=== PATIENT | male | born 1960 | race Caucasian/White ===

== ENCOUNTER 2021-09-11 11:45 | Inpatient (IN) ==
[2021-09-11] MEDS ORDERED: Piperacillin/Tazobactam 3.375 GM in 0.9 % Sodium Chloride Mini Bag 100 ML IVPB ONE (13:30)
[2021-09-11] MEDS ORDERED: Vancomycin 1,500 MG/265 ML IV.SOLN IVPB ONE (14:00)
[2021-09-11 14:13] LABS: Hematocrit 39.8 % (37.5-50.1); Hemoglobin 12.7 g/dL (12.9-16.9); Mean Corpuscular HGB Conc 31.9 g/dL (31.6-35.5); Mean Corpuscular Hemoglobin 29.2 pg (28.0-33.3); Mean Corpuscular Volume 91.5 fL (83.0-100.0); Mean Platelet Volume 10.1 fL (9.4-12.4); Platelet Count 296 K/mcL (140-400); Red Blood Count 4.35 M/mcL (4.19-5.50); Red Cell Distribution Width 13.4 % (11.5-14.5); White Blood Count 9.1 K/mcL (4.3-11.1)
[2021-09-11 14:38] LABS: BUN/Creatinine Ratio 25 (6-26); Blood Urea Nitrogen 28 mg/dL (8-23); Calcium 9.2 mg/dL (8.6-10.3); Carbon Dioxide 29 mEq/L (23-29); Chloride 106 mEq/L (98-107); Glucose 110 mg/dL (70-105); Osmolality,Calculated 290 (280-300); Potassium 3.7 mEq/L (3.5-5.1); Sodium 137 mEq/L (136-145); eGFR For African Americans > 60 (> 60); eGFR For Non-African Americans > 60 (> 60)
[2021-09-11] MEDS ORDERED: Ondansetron 4 MG/2 ML VIAL IVP PRN (15:35)
[2021-09-11] MEDS ORDERED: Melatonin 3 MG TABLET PO PRN (15:35)
[2021-09-11] MEDS ORDERED: Naloxone 0.4 MG/ML INJ IVP PRN (15:35)
[2021-09-11] MEDS: 0.9 % Sodium Chloride 1,000 ML IVC SCH (17:54)
[2021-09-11] MEDS: Nicotine 21 MG PATCH.TD24 TD SCH (17:57)
[2021-09-11] MEDS: Cefepime HCl 2,000 MG in 0.9 % Sodium Chloride Mini Bag 100 ML IVPB SCH (19:40)
[2021-09-12] MEDS ORDERED: Vancomycin 1,500 MG/265 ML IV.SOLN IVPB SCH ×2 (03:00→15:00)
[2021-09-12 03:34] LABS: Basophils % 0.3 %; Eosinophils # 0.2 K/mcL (0.0-0.6); Eosinophils % 1.9 %; Hematocrit 34.2 % (37.5-50.1); Immature Granulocytes % 0.4 % (0-4); Lymphocytes # 1.8 K/mcL (0.6-4.6); Lymphocytes % 23.4 %; Mean Corpuscular HGB Conc 32.5 g/dL (31.6-35.5); Mean Corpuscular Hemoglobin 29.8 pg (28.0-33.3); Mean Corpuscular Volume 91.7 fL (83.0-100.0); Mean Platelet Volume 10.1 fL (9.4-12.4); Monocytes # 0.7 K/mcL (0.0-1.3); Monocytes % 8.3 %; Neutrophils # 5.2 K/mcL (1.6-8.9); Platelet Count 270 K/mcL (140-400); Red Blood Count 3.73 M/mcL (4.19-5.50); Red Cell Distribution Width 13.4 % (11.5-14.5); Segmented Neutrophils % 65.7 %; White Blood Count 7.9 K/mcL (4.3-11.1)
[2021-09-12 03:49] LABS: Hemoglobin 11.1 g/dL (12.9-16.9)
[2021-09-12 04:04] LABS: BUN/Creatinine Ratio 22 (6-26); Blood Urea Nitrogen 25 mg/dL (8-23); Calcium 8.5 mg/dL (8.6-10.3); Carbon Dioxide 27 mEq/L (23-29); Chloride 110 mEq/L (98-107); Chol/HDL Ratio 5.7 (0-4.9); Cholesterol 149 mg/dL (< 200); Glucose 108 mg/dL (70-105); HDL Cholesterol 26 mg/dL (40-59); LDL Cholesterol,Calculated 104 mg/dL (< 100); Magnesium 2.1 mg/dL (1.6-2.6); Osmolality,Calculated 293 (280-300); Potassium 3.8 mEq/L (3.5-5.1); Sodium 139 mEq/L (136-145); Triglycerides 96 mg/dL (< 150); eGFR For African Americans > 60 (> 60); eGFR For Non-African Americans > 60 (> 60)
[2021-09-12] MEDS: 0.9 % Sodium Chloride 1,000 ML IVC SCH (09:26)
[2021-09-12] MEDS: Nicotine 21 MG PATCH.TD24 TD SCH (09:28)
[2021-09-12] MEDS: Cefepime HCl 2,000 MG in 0.9 % Sodium Chloride Mini Bag 100 ML IVPB SCH ×2 (09:28→20:38)
[2021-09-12] MEDS: *HR* Rivaroxaban 10 MG TABLET PO SCH (16:38)
[2021-09-12] MEDS: traZODone 50 MG TABLET PO SCH (20:40)
[2021-09-13 02:34] LABS: BUN/Creatinine Ratio 26 (6-26); Blood Urea Nitrogen 32 mg/dL (8-23); Calcium 8.4 mg/dL (8.6-10.3); Carbon Dioxide 25 mEq/L (23-29); Chloride 114 mEq/L (98-107); Glucose 136 mg/dL (70-105); Osmolality,Calculated 295 (280-300); Potassium 4.4 mEq/L (3.5-5.1); Sodium 138 mEq/L (136-145); eGFR For African Americans > 60 (> 60); eGFR For Non-African Americans 59 (> 60)
[2021-09-13 02:36] LABS: Basophils % 0.5 %; Eosinophils # 0.2 K/mcL (0.0-0.6); Eosinophils % 2.5 %; Hematocrit 35.9 % (37.5-50.1); Hemoglobin 11.3 g/dL (12.9-16.9); Immature Granulocytes % 0.5 % (0-4); Lymphocytes % 31.3 %; Mean Corpuscular HGB Conc 31.5 g/dL (31.6-35.5); Mean Corpuscular Hemoglobin 29.2 pg (28.0-33.3); Mean Corpuscular Volume 92.8 fL (83.0-100.0); Mean Platelet Volume 10.4 fL (9.4-12.4); Monocytes # 0.5 K/mcL (0.0-1.3); Monocytes % 7.3 %; Neutrophils # 3.8 K/mcL (1.6-8.9); Platelet Count 247 K/mcL (140-400); Red Blood Count 3.87 M/mcL (4.19-5.50); Red Cell Distribution Width 13.2 % (11.5-14.5); Segmented Neutrophils % 57.9 %; White Blood Count 6.5 K/mcL (4.3-11.1)
[2021-09-13] MEDS: Vancomycin 1,250 MG/262.5 ML IV.SOLN IVPB SCH ×2 (04:18→14:19)
[2021-09-13] MEDS: Nicotine 21 MG PATCH.TD24 TD SCH ×2 (08:39→08:46)
[2021-09-13] MEDS: TERBINAFINE HCL 250 MG PO SCH (08:40)
[2021-09-13] MEDS: Cefepime HCl 2,000 MG in 0.9 % Sodium Chloride Mini Bag 100 ML IVPB SCH ×2 (08:40→19:37)
[2021-09-13] MEDS: traZODone 50 MG TABLET PO SCH (19:39)
[2021-09-14 01:25] LABS: Basophils % 0.4 %; Eosinophils # 0.2 K/mcL (0.0-0.6); Eosinophils % 2.5 %; Hematocrit 37.9 % (37.5-50.1); Hemoglobin 12.2 g/dL (12.9-16.9); Immature Granulocytes % 0.3 % (0-4); Lymphocytes # 1.9 K/mcL (0.6-4.6); Lymphocytes % 24.6 %; Mean Corpuscular HGB Conc 32.2 g/dL (31.6-35.5); Mean Corpuscular Hemoglobin 29.8 pg (28.0-33.3); Mean Corpuscular Volume 92.4 fL (83.0-100.0); Mean Platelet Volume 10.3 fL (9.4-12.4); Monocytes # 0.5 K/mcL (0.0-1.3); Monocytes % 6.1 %; Neutrophils # 5.1 K/mcL (1.6-8.9); Platelet Count 284 K/mcL (140-400); Red Cell Distribution Width 13.1 % (11.5-14.5); Segmented Neutrophils % 66.1 %; White Blood Count 7.7 K/mcL (4.3-11.1)
[2021-09-14 01:42] LABS: BUN/Creatinine Ratio 24 (6-26); Blood Urea Nitrogen 27 mg/dL (8-23); Calcium 8.9 mg/dL (8.6-10.3); Carbon Dioxide 24 mEq/L (23-29); Chloride 111 mEq/L (98-107); Glucose 102 mg/dL (70-105); Osmolality,Calculated 295 (280-300); Potassium 4.2 mEq/L (3.5-5.1); Sodium 140 mEq/L (136-145); eGFR For African Americans > 60 (> 60); eGFR For Non-African Americans > 60 (> 60)
[2021-09-14] MEDS: Vancomycin 1,250 MG/262.5 ML IV.SOLN IVPB SCH ×2 (02:39→15:43)
[2021-09-14] MEDS: Cefepime HCl 2,000 MG in 0.9 % Sodium Chloride Mini Bag 100 ML IVPB SCH ×2 (08:25→19:26)
[2021-09-14] MEDS: Nicotine 21 MG PATCH.TD24 TD SCH (08:26)
[2021-09-14] MEDS: TERBINAFINE HCL 250 MG PO SCH (08:27)
[2021-09-14] MEDS: traZODone 50 MG TABLET PO SCH (19:30)
[2021-09-15 02:19] LABS: Basophils % 0.4 %; Eosinophils # 0.2 K/mcL (0.0-0.6); Eosinophils % 2.5 %; Hematocrit 36.7 % (37.5-50.1); Hemoglobin 11.8 g/dL (12.9-16.9); Immature Granulocytes % 0.4 % (0-4); Lymphocytes # 1.9 K/mcL (0.6-4.6); Lymphocytes % 26.7 %; Mean Corpuscular HGB Conc 32.2 g/dL (31.6-35.5); Mean Corpuscular Hemoglobin 29.4 pg (28.0-33.3); Mean Corpuscular Volume 91.3 fL (83.0-100.0); Mean Platelet Volume 10.5 fL (9.4-12.4); Monocytes # 0.5 K/mcL (0.0-1.3); Monocytes % 7.5 %; Neutrophils # 4.5 K/mcL (1.6-8.9); Platelet Count 278 K/mcL (140-400); Red Blood Count 4.02 M/mcL (4.19-5.50); Red Cell Distribution Width 13.1 % (11.5-14.5); Segmented Neutrophils % 62.5 %; White Blood Count 7.2 K/mcL (4.3-11.1)
[2021-09-15 02:27] LABS: BUN/Creatinine Ratio 25 (6-26); Blood Urea Nitrogen 29 mg/dL (8-23); Calcium 8.8 mg/dL (8.6-10.3); Carbon Dioxide 23 mEq/L (23-29); Chloride 112 mEq/L (98-107); Glucose 113 mg/dL (70-105); Osmolality,Calculated 293 (280-300); Potassium 4.3 mEq/L (3.5-5.1); Sodium 138 mEq/L (136-145); eGFR For African Americans > 60 (> 60); eGFR For Non-African Americans > 60 (> 60)
[2021-09-15] MEDS: Vancomycin 1,250 MG/262.5 ML IV.SOLN IVPB SCH ×2 (02:47→15:51)
[2021-09-15] MEDS: Nicotine 21 MG PATCH.TD24 TD SCH (08:33)
[2021-09-15] MEDS: Cefepime HCl 2,000 MG in 0.9 % Sodium Chloride Mini Bag 100 ML IVPB SCH ×2 (08:34→19:40)
[2021-09-15] MEDS: TERBINAFINE HCL 250 MG PO SCH (08:39)
[2021-09-15] MEDS: traZODone 50 MG TABLET PO SCH (19:40)
[2021-09-16 01:05] LABS: Basophils % 0.5 %; Eosinophils # 0.2 K/mcL (0.0-0.6); Eosinophils % 2.5 %; Hematocrit 35.3 % (37.5-50.1); Hemoglobin 11.5 g/dL (12.9-16.9); Immature Granulocytes % 0.4 % (0-4); Lymphocytes # 1.9 K/mcL (0.6-4.6); Lymphocytes % 23.8 %; Mean Corpuscular HGB Conc 32.6 g/dL (31.6-35.5); Mean Corpuscular Hemoglobin 29.2 pg (28.0-33.3); Mean Corpuscular Volume 89.6 fL (83.0-100.0); Monocytes # 0.5 K/mcL (0.0-1.3); Monocytes % 6.6 %; Neutrophils # 5.3 K/mcL (1.6-8.9); Platelet Count 258 K/mcL (140-400); Red Blood Count 3.94 M/mcL (4.19-5.50); Red Cell Distribution Width 13.2 % (11.5-14.5); Segmented Neutrophils % 66.2 %; White Blood Count 7.9 K/mcL (4.3-11.1)
[2021-09-16 01:23] LABS: BUN/Creatinine Ratio 29 (6-26); Blood Urea Nitrogen 34 mg/dL (8-23); Calcium 8.7 mg/dL (8.6-10.3); Carbon Dioxide 24 mEq/L (23-29); Chloride 110 mEq/L (98-107); Glucose 106 mg/dL (70-105); Osmolality,Calculated 296 (280-300); Potassium 4.2 mEq/L (3.5-5.1); Sodium 139 mEq/L (136-145); eGFR For African Americans > 60 (> 60); eGFR For Non-African Americans > 60 (> 60)
[2021-09-16] MEDS: Vancomycin 1,250 MG/262.5 ML IV.SOLN IVPB SCH ×2 (02:50→17:23)
[2021-09-16] MEDS: Cefepime HCl 2,000 MG in 0.9 % Sodium Chloride Mini Bag 100 ML IVPB SCH ×2 (08:33→20:17)
[2021-09-16] MEDS: TERBINAFINE HCL 250 MG PO SCH (08:33)
[2021-09-16] MEDS: Nicotine 21 MG PATCH.TD24 TD SCH (08:33)
[2021-09-16] MEDS ORDERED: *HR* FentaNYL (PF) 100 MCG/2 ML VIAL ONE ×3 (13:16→16:20)
[2021-09-16] MEDS ORDERED: *HR* Midazolam HCl 2 MG/2 ML VIAL ONE ×3 (13:16→15:31)
[2021-09-16] MEDS ORDERED: *HR* Heparin 10,000 UNIT/10 ML VIAL ONE (13:16)
[2021-09-16] MEDS ORDERED: Heparin 1,000 UNITS/500 mL 500 ML ONE ×2 (13:17→15:07)
[2021-09-16] MEDS ORDERED: 0.9 % Sodium Chloride 2,000 ML ONE (13:17)
[2021-09-16] MEDS ORDERED: Acetaminophen 325 MG TABLET PO PRN (15:40)
[2021-09-16] MEDS: *HR* HYDROcodone/Acet 5/325 mg TABLET PO PRN ×2 (17:25→23:51)
[2021-09-16] MEDS: traZODone 50 MG TABLET PO SCH (20:17)
[2021-09-17] MEDS: Cefepime HCl 2,000 MG in 0.9 % Sodium Chloride Mini Bag 100 ML IVPB SCH ×2 (07:46→20:25)
[2021-09-17] MEDS: Nicotine 21 MG PATCH.TD24 TD SCH (07:48)
[2021-09-17] MEDS: *HR* Rivaroxaban 10 MG TABLET PO SCH ×2 (17:35→20:27)
[2021-09-17] MEDS: traZODone 50 MG TABLET PO SCH (20:28)
[2021-09-18] MEDS: *HR* Rivaroxaban 10 MG TABLET PO SCH ×2 (02:19→16:44)
[2021-09-18 02:33] LABS: Basophils # 0.1 K/mcL (0.0-0.2); Basophils % 0.6 %; Eosinophils # 0.2 K/mcL (0.0-0.6); Eosinophils % 2.1 %; Hematocrit 34.6 % (37.5-50.1); Hemoglobin 11.4 g/dL (12.9-16.9); Immature Granulocytes % 0.2 % (0-4); Lymphocytes # 1.9 K/mcL (0.6-4.6); Lymphocytes % 23.2 %; Mean Corpuscular HGB Conc 32.9 g/dL (31.6-35.5); Mean Corpuscular Hemoglobin 29.5 pg (28.0-33.3); Mean Corpuscular Volume 89.4 fL (83.0-100.0); Mean Platelet Volume 10.4 fL (9.4-12.4); Monocytes # 0.8 K/mcL (0.0-1.3); Monocytes % 9.3 %; Neutrophils # 5.3 K/mcL (1.6-8.9); Platelet Count 251 K/mcL (140-400); Red Blood Count 3.87 M/mcL (4.19-5.50); Red Cell Distribution Width 13.2 % (11.5-14.5); Segmented Neutrophils % 64.6 %; White Blood Count 8.2 K/mcL (4.3-11.1)
[2021-09-18 02:57] LABS: Alanine Aminotransferase 10 Units/L (7-52); Albumin 3.2 g/dL (3.5-5.7); Albumin/Globulin Ratio 0.9 (1.1-2.2); Alkaline Phosphatase 43 Units/L (34-104); Aspartate Amino Transferase 11 Units/L (13-39); BUN/Creatinine Ratio 25 (6-26); Bilirubin,Total 0.3 mg/dL (0.3-1.0); Blood Urea Nitrogen 26 mg/dL (8-23); Calcium 8.7 mg/dL (8.6-10.3); Carbon Dioxide 23 mEq/L (23-29); Chloride 108 mEq/L (98-107); Globulin 3.7 g/dL (2.4-3.5); Glucose 105 mg/dL (70-105); Osmolality,Calculated 289 (280-300); Potassium 3.9 mEq/L (3.5-5.1); Sodium 137 mEq/L (136-145); Total Protein 6.9 g/dL (6.4-8.9); eGFR For African Americans > 60 (> 60); eGFR For Non-African Americans > 60 (> 60)
[2021-09-18] MEDS: Nicotine 21 MG PATCH.TD24 TD SCH (08:42)
[2021-09-18] MEDS: Cefepime HCl 2,000 MG in 0.9 % Sodium Chloride Mini Bag 100 ML IVPB SCH (08:42)
[2021-09-18] MEDS: Piperacillin/Tazobactam 3.375 GM in 0.9 % Sodium Chloride Mini Bag 100 ML IVPB SCH ×2 (16:44→23:35)
[2021-09-18] MEDS: traZODone 50 MG TABLET PO SCH (20:43)
[2021-09-19 02:58] LABS: Basophils % 0.5 %; Eosinophils # 0.2 K/mcL (0.0-0.6); Eosinophils % 2.2 %; Hematocrit 37.1 % (37.5-50.1); Hemoglobin 12.1 g/dL (12.9-16.9); Immature Granulocytes % 0.4 % (0-4); Lymphocytes # 1.9 K/mcL (0.6-4.6); Lymphocytes % 23.3 %; Mean Corpuscular HGB Conc 32.6 g/dL (31.6-35.5); Mean Corpuscular Hemoglobin 29.5 pg (28.0-33.3); Mean Corpuscular Volume 90.5 fL (83.0-100.0); Mean Platelet Volume 10.7 fL (9.4-12.4); Monocytes # 0.8 K/mcL (0.0-1.3); Monocytes % 9.7 %; Neutrophils # 5.1 K/mcL (1.6-8.9); Platelet Count 246 K/mcL (140-400); Red Cell Distribution Width 13.3 % (11.5-14.5); Segmented Neutrophils % 63.9 %
[2021-09-19 03:19] LABS: BUN/Creatinine Ratio 24 (6-26); Blood Urea Nitrogen 30 mg/dL (8-23); Calcium 8.9 mg/dL (8.6-10.3); Carbon Dioxide 26 mEq/L (23-29); Chloride 108 mEq/L (98-107); Glucose 150 mg/dL (70-105); Osmolality,Calculated 293 (280-300); Potassium 3.8 mEq/L (3.5-5.1); Sodium 137 mEq/L (136-145); eGFR For African Americans > 60 (> 60); eGFR For Non-African Americans 59 (> 60)
[2021-09-19] MEDS: Piperacillin/Tazobactam 3.375 GM in 0.9 % Sodium Chloride Mini Bag 100 ML IVPB SCH ×3 (08:39→23:49)
[2021-09-19] MEDS: Nicotine 21 MG PATCH.TD24 TD SCH (08:39)
[2021-09-19 12:32] LABS: Influenza A PCR Negative (Negative); Influenza B PCR Negative (Negative); Resp. Syncytial Virus PCR Negative (Negative)
[2021-09-19 12:37] LABS: SARS-CoV-2 by PCR (In House) Positive (Negative)
[2021-09-19] MEDS: *HR* Rivaroxaban 10 MG TABLET PO SCH (15:21)
[2021-09-19] MEDS: traZODone 50 MG TABLET PO SCH ×2 (21:02→21:11)
[2021-09-20 05:28] LABS: Basophils % 0.5 %; Eosinophils # 0.2 K/mcL (0.0-0.6); Hematocrit 35.2 % (37.5-50.1); Hemoglobin 11.6 g/dL (12.9-16.9); Immature Granulocytes % 0.4 % (0-4); Lymphocytes # 2.1 K/mcL (0.6-4.6); Lymphocytes % 28.1 %; Mean Corpuscular Hemoglobin 29.7 pg (28.0-33.3); Mean Corpuscular Volume 90.3 fL (83.0-100.0); Mean Platelet Volume 10.7 fL (9.4-12.4); Monocytes # 0.7 K/mcL (0.0-1.3); Monocytes % 9.7 %; Neutrophils # 4.4 K/mcL (1.6-8.9); Platelet Count 246 K/mcL (140-400); Red Cell Distribution Width 13.6 % (11.5-14.5); Segmented Neutrophils % 58.3 %; White Blood Count 7.6 K/mcL (4.3-11.1)
[2021-09-20 05:43] LABS: BUN/Creatinine Ratio 25 (6-26); Blood Urea Nitrogen 26 mg/dL (8-23); Calcium 8.9 mg/dL (8.6-10.3); Carbon Dioxide 25 mEq/L (23-29); Chloride 106 mEq/L (98-107); Glucose 116 mg/dL (70-105); Osmolality,Calculated 288 (280-300); Potassium 3.8 mEq/L (3.5-5.1); Sodium 136 mEq/L (136-145); eGFR For African Americans > 60 (> 60); eGFR For Non-African Americans > 60 (> 60)
[2021-09-20] MEDS: Piperacillin/Tazobactam 3.375 GM in 0.9 % Sodium Chloride Mini Bag 100 ML IVPB SCH ×3 (08:40→23:57)
[2021-09-20] MEDS: Nicotine 21 MG PATCH.TD24 TD SCH (08:41)
[2021-09-20] MEDS: *HR* Rivaroxaban 10 MG TABLET PO SCH (16:28)
[2021-09-20] MEDS: traZODone 50 MG TABLET PO SCH (19:07)
[2021-09-21 06:21] LABS: Basophils # 0.1 K/mcL (0.0-0.2); Basophils % 0.9 %; Eosinophils # 0.3 K/mcL (0.0-0.6); Eosinophils % 3.8 %; Hematocrit 36.4 % (37.5-50.1); Hemoglobin 11.9 g/dL (12.9-16.9); Immature Granulocytes % 0.2 % (0-4); Lymphocytes # 2.2 K/mcL (0.6-4.6); Lymphocytes % 27.4 %; Mean Corpuscular HGB Conc 32.7 g/dL (31.6-35.5); Mean Corpuscular Hemoglobin 29.2 pg (28.0-33.3); Mean Corpuscular Volume 89.4 fL (83.0-100.0); Mean Platelet Volume 10.5 fL (9.4-12.4); Monocytes # 0.7 K/mcL (0.0-1.3); Monocytes % 8.3 %; Neutrophils # 4.9 K/mcL (1.6-8.9); Platelet Count 263 K/mcL (140-400); Red Blood Count 4.07 M/mcL (4.19-5.50); Red Cell Distribution Width 13.7 % (11.5-14.5); Segmented Neutrophils % 59.4 %; White Blood Count 8.2 K/mcL (4.3-11.1)
[2021-09-21 06:33] LABS: BUN/Creatinine Ratio 26 (6-26); Blood Urea Nitrogen 35 mg/dL (8-23); Carbon Dioxide 26 mEq/L (23-29); Chloride 104 mEq/L (98-107); Glucose 149 mg/dL (70-105); Osmolality,Calculated 295 (280-300); Potassium 4.1 mEq/L (3.5-5.1); Sodium 137 mEq/L (136-145); eGFR For African Americans > 60 (> 60); eGFR For Non-African Americans 53 (> 60)
[2021-09-21] MEDS ORDERED: 0.9 % Sodium Chloride Mini Bag 100 ML ONE (08:02)
[2021-09-21] MEDS: Piperacillin/Tazobactam 3.375 GM in 0.9 % Sodium Chloride Mini Bag 100 ML IVPB SCH ×2 (08:15→16:17)
[2021-09-21] MEDS: Nicotine 21 MG PATCH.TD24 TD SCH (08:17)
[2021-09-21] MEDS ORDERED: 0.9 % Sodium Chloride 1,000 ML IVC ONE (13:56)
[2021-09-21] MEDS ORDERED: 0.9 % Sodium Chloride 1,000 ML IVC SCH (14:00)
[2021-09-21] MEDS: *HR* Rivaroxaban 10 MG TABLET PO SCH (16:17)
[2021-09-21] MEDS: *HR* HYDROcodone/Acet 5/325 mg TABLET PO PRN (21:43)
[2021-09-21] MEDS: traZODone 50 MG TABLET PO SCH (21:43)
[2021-09-22] MEDS: Piperacillin/Tazobactam 3.375 GM in 0.9 % Sodium Chloride Mini Bag 100 ML IVPB SCH ×3 (02:00→17:09)
[2021-09-22 04:51] LABS: Hematocrit 32.1 % (37.5-50.1); Hemoglobin 10.6 g/dL (12.9-16.9); Mean Corpuscular Hemoglobin 29.3 pg (28.0-33.3); Mean Corpuscular Volume 88.7 fL (83.0-100.0); Mean Platelet Volume 10.3 fL (9.4-12.4); Platelet Count 227 K/mcL (140-400); Red Blood Count 3.62 M/mcL (4.19-5.50); Red Cell Distribution Width 13.4 % (11.5-14.5); White Blood Count 6.3 K/mcL (4.3-11.1)
[2021-09-22 05:02] LABS: BUN/Creatinine Ratio 22 (6-26); Blood Urea Nitrogen 26 mg/dL (8-23); Calcium 8.4 mg/dL (8.6-10.3); Carbon Dioxide 26 mEq/L (23-29); Chloride 110 mEq/L (98-107); Glucose 128 mg/dL (70-105); Osmolality,Calculated 296 (280-300); Potassium 3.9 mEq/L (3.5-5.1); Sodium 140 mEq/L (136-145); eGFR For African Americans > 60 (> 60); eGFR For Non-African Americans > 60 (> 60)
[2021-09-22] MEDS: Nicotine 21 MG PATCH.TD24 TD SCH (09:26)
[2021-09-22] MEDS: *HR* Rivaroxaban 10 MG TABLET PO SCH (17:09)
[2021-09-22] MEDS: traZODone 50 MG TABLET PO SCH (21:19)
[2021-09-23] MEDS: Piperacillin/Tazobactam 3.375 GM in 0.9 % Sodium Chloride Mini Bag 100 ML IVPB SCH ×3 (00:57→15:52)
[2021-09-23 05:51] LABS: Hematocrit 34.5 % (37.5-50.1); Hemoglobin 11.6 g/dL (12.9-16.9); Mean Corpuscular HGB Conc 33.6 g/dL (31.6-35.5); Mean Corpuscular Hemoglobin 29.8 pg (28.0-33.3); Mean Corpuscular Volume 88.7 fL (83.0-100.0); Mean Platelet Volume 9.9 fL (9.4-12.4); Platelet Count 262 K/mcL (140-400); Red Blood Count 3.89 M/mcL (4.19-5.50); Red Cell Distribution Width 13.4 % (11.5-14.5); White Blood Count 8.8 K/mcL (4.3-11.1)
[2021-09-23] MEDS: Nicotine 21 MG PATCH.TD24 TD SCH (08:14)
[2021-09-23 12:41] LABS: BUN/Creatinine Ratio 22 (6-26); Blood Urea Nitrogen 25 mg/dL (8-23); Calcium 8.9 mg/dL (8.6-10.3); Carbon Dioxide 25 mEq/L (23-29); Chloride 107 mEq/L (98-107); Glucose 135 mg/dL (70-105); Osmolality,Calculated 290 (280-300); Potassium 4.2 mEq/L (3.5-5.1); Sodium 137 mEq/L (136-145); eGFR For African Americans > 60 (> 60); eGFR For Non-African Americans > 60 (> 60)
[2021-09-23] MEDS: *HR* Rivaroxaban 10 MG TABLET PO SCH (15:52)
[2021-09-23] MEDS: traZODone 50 MG TABLET PO SCH (22:04)
[2021-09-24] MEDS: Piperacillin/Tazobactam 3.375 GM in 0.9 % Sodium Chloride Mini Bag 100 ML IVPB SCH ×3 (02:13→16:45)
[2021-09-24 06:39] LABS: Hematocrit 37.4 % (37.5-50.1); Hemoglobin 11.7 g/dL (12.9-16.9); Mean Corpuscular HGB Conc 31.3 g/dL (31.6-35.5); Mean Corpuscular Hemoglobin 28.7 pg (28.0-33.3); Mean Corpuscular Volume 91.7 fL (83.0-100.0); Mean Platelet Volume 10.2 fL (9.4-12.4); Platelet Count 271 K/mcL (140-400); Red Blood Count 4.08 M/mcL (4.19-5.50); Red Cell Distribution Width 13.6 % (11.5-14.5); White Blood Count 7.5 K/mcL (4.3-11.1)
[2021-09-24 07:09] LABS: BUN/Creatinine Ratio 24 (6-26); Blood Urea Nitrogen 27 mg/dL (8-23); Carbon Dioxide 22 mEq/L (23-29); Chloride 109 mEq/L (98-107); Glucose 129 mg/dL (70-105); Osmolality,Calculated 295 (280-300); Potassium 4.1 mEq/L (3.5-5.1); Sodium 139 mEq/L (136-145); eGFR For African Americans > 60 (> 60); eGFR For Non-African Americans > 60 (> 60)
[2021-09-24] MEDS: Nicotine 21 MG PATCH.TD24 TD SCH (08:05)
[2021-09-24] MEDS: *HR* Rivaroxaban 10 MG TABLET PO SCH (16:46)
[2021-09-24] MEDS: traZODone 50 MG TABLET PO SCH (20:14)
[2021-09-25] MEDS: Piperacillin/Tazobactam 3.375 GM in 0.9 % Sodium Chloride Mini Bag 100 ML IVPB SCH ×2 (01:05→08:06)
[2021-09-25 03:55] LABS: Hematocrit 36.6 % (37.5-50.1); Mean Corpuscular HGB Conc 32.8 g/dL (31.6-35.5); Mean Corpuscular Hemoglobin 29.5 pg (28.0-33.3); Mean Corpuscular Volume 89.9 fL (83.0-100.0); Mean Platelet Volume 10.3 fL (9.4-12.4); Platelet Count 276 K/mcL (140-400); Red Blood Count 4.07 M/mcL (4.19-5.50); Red Cell Distribution Width 13.5 % (11.5-14.5); White Blood Count 7.7 K/mcL (4.3-11.1)
[2021-09-25 04:20] LABS: BUN/Creatinine Ratio 26 (6-26); Blood Urea Nitrogen 33 mg/dL (8-23); Calcium 9.1 mg/dL (8.6-10.3); Carbon Dioxide 24 mEq/L (23-29); Chloride 109 mEq/L (98-107); Glucose 115 mg/dL (70-105); Osmolality,Calculated 298 (280-300); Sodium 140 mEq/L (136-145); eGFR For African Americans > 60 (> 60); eGFR For Non-African Americans 58 (> 60)
[2021-09-25] MEDS: Nicotine 21 MG PATCH.TD24 TD SCH (08:08)
[2021-09-25 15:47] VITALS: BP 116/69; PULSE 92; TEMP 97.9; O2SAT 96
== END 2021-09-25 17:35 | DRG 182 ==
LOC: 3BNU 11:45 → EMEROOARM 11:45 → SUATTDRO 15:32 → MERGE 15:32 → 3BNU 16:18 → SUATTDRO 09-13 18:13 → 3BNU 09-19 13:25
PROVIDERS: ADMIT Hospitalist; ATTEND Internal Medicine

== ENCOUNTER 2021-12-04 12:19 | Inpatient (IN) ==
[2021-12-04] MEDS ORDERED: *HR* OxyCODONE Immed Rel 5 MG TABLET PO PRN (13:54)
[2021-12-04] MEDS ORDERED: *HR* HYDROcodone/Acet 5/325 mg TABLET PO PRN (13:54)
[2021-12-04] MEDS ORDERED: Ondansetron 4 MG/2 ML VIAL IVP PRN (13:54)
[2021-12-04] MEDS ORDERED: Naloxone 0.4 MG/ML INJ IVP PRN (13:54)
[2021-12-04] MEDS ORDERED: Vancomycin 1,250 MG/262.5 ML IV.SOLN IVPB ONE (14:00)
[2021-12-04] MEDS ORDERED: *HR* Heparin 5,000 UNIT/ML VIAL IVP ONE (14:18)
[2021-12-04] MEDS ORDERED: *HR* Heparin 5,000 UNIT/ML VIAL IVP PRN ×2 (14:18)
[2021-12-04] MEDS ORDERED: Heparin 25,000UNIT/250ML 1/2NS 25,000 UNIT/250 ML IV.SOLN IVC SCH (14:30)
[2021-12-04] MEDS: Heparin 25,000UNIT/250ML 1/2NS 25,000 UNIT/250 ML IV.SOLN IVC SCH (15:05)
[2021-12-04] MEDS: Piperacillin/Tazobactam 3.375 GM in 0.9 % Sodium Chloride Mini Bag 100 ML IVPB SCH ×2 (17:50→23:59)
[2021-12-04 18:18] LABS: Basophils % 0.5 %; Eosinophils # 0.2 K/mcL (0.0-0.6); Eosinophils % 2.2 %; Hemoglobin 12.4 g/dL (12.9-16.9); Immature Granulocytes % 0.2 % (0-4); Lymphocytes # 2.4 K/mcL (0.6-4.6); Lymphocytes % 29.2 %; Mean Corpuscular HGB Conc 32.6 g/dL (31.6-35.5); Mean Corpuscular Hemoglobin 29.8 pg (28.0-33.3); Mean Corpuscular Volume 91.3 fL (83.0-100.0); Mean Platelet Volume 10.6 fL (9.4-12.4); Monocytes # 0.4 K/mcL (0.0-1.3); Monocytes % 5.1 %; Neutrophils # 5.2 K/mcL (1.6-8.9); Platelet Count 262 K/mcL (140-400); Red Blood Count 4.16 M/mcL (4.19-5.50); Segmented Neutrophils % 62.8 %; White Blood Count 8.4 K/mcL (4.3-11.1)
[2021-12-04 18:36] LABS: BUN/Creatinine Ratio 20 (6-26); Blood Urea Nitrogen 23 mg/dL (8-23); Calcium 9.4 mg/dL (8.6-10.3); Carbon Dioxide 28 mEq/L (23-29); Chloride 103 mEq/L (98-107); Glucose 156 mg/dL (70-105); Osmolality,Calculated 295 (280-300); Phosphorous 3.1 mg/dL (2.7-4.5); Potassium 3.6 mEq/L (3.5-5.1); Sodium 139 mEq/L (136-145); eGFR For African Americans > 60 (> 60); eGFR For Non-African Americans > 60 (> 60)
[2021-12-04 18:44] LABS: INR 1.9; Prothrombin Time 21.6 Seconds (9.4-12.1)
[2021-12-04] MEDS ORDERED: Isovue-370 500 ML BOTTLE IVP ONE (18:52)
[2021-12-04 19:03] LABS: Activated Partial Thrombo Time > 360.0 Seconds (26.0-36.0)
[2021-12-04] MEDS ORDERED: hydrOXYzine pamoate 25 MG CAPSULE PO SCH (21:00)
[2021-12-04] MEDS ORDERED: traZODone 50 MG TABLET PO SCH (21:00)
[2021-12-05] MEDS: Vancomycin 1,250 MG/262.5 ML IV.SOLN IVPB SCH ×2 (03:40→18:11)
[2021-12-05] MEDS: Piperacillin/Tazobactam 3.375 GM in 0.9 % Sodium Chloride Mini Bag 100 ML IVPB SCH (09:05)
[2021-12-05] MEDS ORDERED: Acetaminophen 325 MG TABLET PO PRN ×2 (13:19→16:32)
[2021-12-05] MEDS ORDERED: *HR* HYDROcodone/Acet 5/325 mg TABLET PO PRN ×2 (13:20→16:32)
[2021-12-05] MEDS ORDERED: *HR* FentaNYL (PF) 100 MCG/2 ML VIAL ONE (13:45)
[2021-12-05] MEDS ORDERED: *HR* Rocuronium Bromide 50 MG/5 ML VIAL ONE (13:45)
[2021-12-05] MEDS ORDERED: Ondansetron 4 MG/2 ML VIAL ONE (13:45)
[2021-12-05] MEDS ORDERED: *HR* Propofol 200 MG/20 ML VIAL IVP ONE (13:45)
[2021-12-05] MEDS ORDERED: Lidocaine -MPF 2% 2 ML VIAL ONE (13:45)
[2021-12-05] MEDS ORDERED: Famotidine 20 MG/2 ML VIAL IVP ONE (13:47)
[2021-12-05] MEDS ORDERED: Acetaminophen IV 1,000 MG/100 ML BAG IVPB ONE ×2 (13:47→16:32)
[2021-12-05] MEDS ORDERED: *HR* Midazolam HCl 2 MG/2 ML VIAL ONE (14:00)
[2021-12-05] MEDS ORDERED: Ringers Solution, Lactated 1,000 ML IVC SCH ×2 (14:15→16:32)
[2021-12-05] MEDS ORDERED: Bupivacaine/Clonidine Syringe 20 ML, Syringe LUER-LOK 1 EACH TP ONE ×2 (14:15→16:32)
[2021-12-05] MEDS ORDERED: EPHEDrine 50 MG/ML VIAL ONE (14:46)
[2021-12-05] MEDS ORDERED: Ketamine HCL *QUVA* 50mg (1mL) SYRINGE ONE (14:55)
[2021-12-05] MEDS ORDERED: *HR* HYDROMORPHONE 2 MG/ML VIAL ONE (15:03)
[2021-12-05] MEDS ORDERED: *HR* Heparin 5,000 UNIT/ML VIAL IVP PRN ×2 (16:32)
[2021-12-05] MEDS ORDERED: Ondansetron 4 MG/2 ML VIAL IVP PRN (16:32)
[2021-12-05] MEDS ORDERED: Naloxone 0.4 MG/ML INJ IVP PRN (16:32)
[2021-12-05] MEDS: Heparin 25,000UNIT/250ML 1/2NS 25,000 UNIT/250 ML IV.SOLN IVC SCH (18:10)
[2021-12-05] MEDS: traZODone 50 MG TABLET PO SCH (20:14)
[2021-12-05] MEDS: hydrOXYzine pamoate 25 MG CAPSULE PO SCH (20:14)
[2021-12-06 00:53] LABS: Hematocrit 37.3 % (37.5-50.1); Hemoglobin 12.5 g/dL (12.9-16.9); Mean Corpuscular HGB Conc 33.5 g/dL (31.6-35.5); Mean Corpuscular Hemoglobin 30.3 pg (28.0-33.3); Mean Corpuscular Volume 90.3 fL (83.0-100.0); Mean Platelet Volume 10.8 fL (9.4-12.4); Platelet Count 228 K/mcL (140-400); Red Blood Count 4.13 M/mcL (4.19-5.50); Red Cell Distribution Width 14.8 % (11.5-14.5); Segmented Neutrophils % 88.6 %; White Blood Count 7.9 K/mcL (4.3-11.1)
[2021-12-06 00:54] LABS: Basophils % 0.3 %; Immature Granulocytes % 0.4 % (0-4); Lymphocytes # 0.8 K/mcL (0.6-4.6); Lymphocytes % 9.8 %; Monocytes # 0.1 K/mcL (0.0-1.3); Monocytes % 0.9 %
[2021-12-06 01:11] LABS: BUN/Creatinine Ratio 24 (6-26); Blood Urea Nitrogen 26 mg/dL (8-23); Calcium 8.9 mg/dL (8.6-10.3); Carbon Dioxide 25 mEq/L (23-29); Chloride 105 mEq/L (98-107); Glucose 178 mg/dL (70-105); Osmolality,Calculated 293 (280-300); Potassium 4.3 mEq/L (3.5-5.1); Sodium 137 mEq/L (136-145); eGFR For African Americans > 60 (> 60); eGFR For Non-African Americans > 60 (> 60)
[2021-12-06] MEDS: Vancomycin 1,250 MG/262.5 ML IV.SOLN IVPB SCH ×2 (06:06→17:55)
[2021-12-06] MEDS: *HR* Rivaroxaban 10 MG TABLET PO SCH (17:12)
[2021-12-06] MEDS: Piperacillin/Tazobactam 3.375 GM in 0.9 % Sodium Chloride Mini Bag 100 ML IVPB SCH (17:12)
[2021-12-06] MEDS: traZODone 50 MG TABLET PO SCH (20:13)
[2021-12-06] MEDS: hydrOXYzine pamoate 25 MG CAPSULE PO SCH (20:13)
[2021-12-07] MEDS: Piperacillin/Tazobactam 3.375 GM in 0.9 % Sodium Chloride Mini Bag 100 ML IVPB SCH ×4 (01:27→17:48)
[2021-12-07] MEDS: Vancomycin 1,250 MG/262.5 ML IV.SOLN IVPB SCH ×3 (05:33→17:49)
[2021-12-07 07:17] LABS: BUN/Creatinine Ratio 21 (6-26); Blood Urea Nitrogen 26 mg/dL (8-23); Calcium 8.7 mg/dL (8.6-10.3); Carbon Dioxide 25 mEq/L (23-29); Chloride 110 mEq/L (98-107); Glucose 120 mg/dL (70-105); Osmolality,Calculated 302 (280-300); Potassium 4.4 mEq/L (3.5-5.1); Sodium 143 mEq/L (136-145); eGFR For African Americans > 60 (> 60); eGFR For Non-African Americans > 60 (> 60)
[2021-12-07 07:48] LABS: Basophils # 0.1 K/mcL (0.0-0.2); Basophils % 0.6 %; Eosinophils # 0.1 K/mcL (0.0-0.6); Eosinophils % 1.8 %; Hematocrit 33.8 % (37.5-50.1); Hemoglobin 11.2 g/dL (12.9-16.9); Immature Granulocytes % 0.4 % (0-4); Lymphocytes # 2.5 K/mcL (0.6-4.6); Lymphocytes % 31.2 %; Mean Corpuscular HGB Conc 33.1 g/dL (31.6-35.5); Mean Corpuscular Hemoglobin 29.9 pg (28.0-33.3); Mean Corpuscular Volume 90.1 fL (83.0-100.0); Mean Platelet Volume 10.5 fL (9.4-12.4); Monocytes # 0.5 K/mcL (0.0-1.3); Monocytes % 6.3 %; Neutrophils # 4.7 K/mcL (1.6-8.9); Platelet Count 212 K/mcL (140-400); Red Blood Count 3.75 M/mcL (4.19-5.50); Segmented Neutrophils % 59.7 %; White Blood Count 7.9 K/mcL (4.3-11.1)
[2021-12-07 08:35] LABS: Estimated Average Glucose 128 mg/dl; Hemoglobin A1C 6.1 %
[2021-12-07] MEDS: Heparin 25,000UNIT/250ML 1/2NS 25,000 UNIT/250 ML IV.SOLN IVC SCH ×2 (11:14→16:17)
[2021-12-07] MEDS: *HR* Rivaroxaban 10 MG TABLET PO SCH (17:49)
[2021-12-07] MEDS: hydrOXYzine pamoate 25 MG CAPSULE PO SCH (20:07)
[2021-12-07] MEDS: traZODone 50 MG TABLET PO SCH (20:07)
[2021-12-08] MEDS: Piperacillin/Tazobactam 3.375 GM in 0.9 % Sodium Chloride Mini Bag 100 ML IVPB SCH ×3 (02:52→18:30)
[2021-12-08] MEDS: Vancomycin 1,250 MG/262.5 ML IV.SOLN IVPB SCH (05:13)
[2021-12-08 05:17] LABS: Basophils # 0.1 K/mcL (0.0-0.2); Basophils % 0.7 %; Eosinophils # 0.2 K/mcL (0.0-0.6); Eosinophils % 3.4 %; Hematocrit 36.5 % (37.5-50.1); Hemoglobin 11.9 g/dL (12.9-16.9); Immature Granulocytes % 0.4 % (0-4); Lymphocytes # 2.4 K/mcL (0.6-4.6); Lymphocytes % 34.4 %; Mean Corpuscular HGB Conc 32.6 g/dL (31.6-35.5); Mean Corpuscular Hemoglobin 29.2 pg (28.0-33.3); Mean Corpuscular Volume 89.7 fL (83.0-100.0); Mean Platelet Volume 10.3 fL (9.4-12.4); Monocytes # 0.5 K/mcL (0.0-1.3); Monocytes % 6.5 %; Neutrophils # 3.9 K/mcL (1.6-8.9); Platelet Count 243 K/mcL (140-400); Red Blood Count 4.07 M/mcL (4.19-5.50); Red Cell Distribution Width 15.2 % (11.5-14.5); Segmented Neutrophils % 54.6 %; White Blood Count 7.1 K/mcL (4.3-11.1)
[2021-12-08 05:37] LABS: BUN/Creatinine Ratio 19 (6-26); Blood Urea Nitrogen 24 mg/dL (8-23); Carbon Dioxide 26 mEq/L (23-29); Chloride 107 mEq/L (98-107); Glucose 117 mg/dL (70-105); Osmolality,Calculated 293 (280-300); Potassium 4.1 mEq/L (3.5-5.1); Sodium 139 mEq/L (136-145); eGFR For African Americans > 60 (> 60); eGFR For Non-African Americans 57 (> 60)
[2021-12-08] MEDS: *HR* Rivaroxaban 10 MG TABLET PO SCH (18:30)
[2021-12-08] MEDS: traZODone 50 MG TABLET PO SCH (20:45)
[2021-12-08] MEDS: hydrOXYzine pamoate 25 MG CAPSULE PO SCH (20:46)
[2021-12-09] MEDS: Piperacillin/Tazobactam 3.375 GM in 0.9 % Sodium Chloride Mini Bag 100 ML IVPB SCH ×3 (03:14→17:37)
[2021-12-09] MEDS: *HR* Rivaroxaban 10 MG TABLET PO SCH (17:36)
[2021-12-09] MEDS: traZODone 50 MG TABLET PO SCH (20:44)
[2021-12-09] MEDS: hydrOXYzine pamoate 25 MG CAPSULE PO SCH (20:44)
[2021-12-10] MEDS: levoFLOXacin 750 MG TABLET PO SCH (09:41)
[2021-12-10] MEDS: *HR* Rivaroxaban 10 MG TABLET PO SCH (17:33)
[2021-12-10] MEDS: traZODone 50 MG TABLET PO SCH (20:07)
[2021-12-10] MEDS: hydrOXYzine pamoate 25 MG CAPSULE PO SCH (20:07)
[2021-12-11 07:18] VITALS: TEMP 97.6
[2021-12-11] MEDS: levoFLOXacin 750 MG TABLET PO SCH (09:11)
[2021-12-11 10:27] LABS: Basophils # 0.1 K/mcL (0.0-0.2); Basophils % 0.6 %; Eosinophils # 0.2 K/mcL (0.0-0.6); Hematocrit 42.2 % (37.5-50.1); Immature Granulocytes % 0.6 % (0-4); Lymphocytes # 2.1 K/mcL (0.6-4.6); Lymphocytes % 27.1 %; Mean Corpuscular HGB Conc 32.7 g/dL (31.6-35.5); Mean Corpuscular Hemoglobin 29.6 pg (28.0-33.3); Mean Corpuscular Volume 90.4 fL (83.0-100.0); Mean Platelet Volume 10.3 fL (9.4-12.4); Monocytes # 0.4 K/mcL (0.0-1.3); Monocytes % 5.1 %; Platelet Count 270 K/mcL (140-400); Red Blood Count 4.67 M/mcL (4.19-5.50); Red Cell Distribution Width 15.2 % (11.5-14.5); Segmented Neutrophils % 63.6 %; White Blood Count 7.9 K/mcL (4.3-11.1)
[2021-12-11 10:47] LABS: Calcium 9.6 mg/dL (8.6-10.3); Magnesium 2.1 mg/dL (1.6-2.6); Potassium 4.3 mEq/L (3.5-5.1)
[2021-12-11 10:49] LABS: Hemoglobin 13.8 g/dL (12.9-16.9)
[2021-12-11 11:13] VITALS: BP 103/71; PULSE 70; O2SAT 97
[2021-12-11 12:19] LABS: Adenovirus Not Detected (Not Detect); Bordetella Pertussis Not Detected (Not Detect); Chlamydophila pneumoniae Not Detected (Not Detect); Coronavirus 229E Not Detected (Not Detect); Coronavirus HKU1 Not Detected (Not Detect); Coronavirus NL63 Not Detected (Not Detect); Coronavirus OC43 Not Detected (Not Detect); Human Metapneumovirus Not Detected (Not Detect); Human Rhinovirus/Enterovirus Not Detected (Not Detect); Influenza A Subtype 2009 H1 Not Detected (Not Detect); Influenza B Not Detected (Not Detect); Mycoplasma pneumoniae Not Detected (Not Detect); Parainfluenza Virus 1 Not Detected (Not Detect); Parainfluenza Virus 2 Not Detected (Not Detect); Parainfluenza Virus 3 Not Detected (Not Detect); Parainfluenza Virus 4 Not Detected (Not Detect); Respiratory Syncytial Virus Not Detected (Not Detect); SARS-CoV-2 Not Detected (Not Detect)
== END 2021-12-11 13:19 | DRG 951 ==
LOC: 4WAOSI → SUATTDRO 17:19
PROVIDERS: ADMIT Internal Medicine; ATTEND Pharmacist